=== PATIENT | female | born 1930 | race Caucasian/White ===

== ENCOUNTER 2017-03-03 17:56 | Emergency (ER) | payer MEDICARE, OTHER ==
[2017-03-03 19:20] LABS: Hematocrit 38.8 % (36.0-47.0); Mean Platelet Volume 6.8 fL (7.4-10.4); Red Blood Cell (RBC) Count 4.02 mill/uL (4.20-5.40); White Blood Cell (WBC) Count 11.6 thou/uL (4.8-10.8)
[2017-03-03 19:27] LABS: PTT 33.6 SEC (22.9-36.1); Prothrombin Time 14.1 SEC (12.0-14.7)
[2017-03-03 19:39] LABS: Band 5 % (5-11); Neutrophil 49 % (42-75); Reactive Lymphocytes 1 % (0-10)
[2017-03-03 19:42] LABS: ALT (SGPT) 12 U/L (8-55); AST (SGOT) 15 U/L (5-34); Alkaline Phosphatase 74 U/L (40-150); Anion Gap 13 mmol/L (10-20); BUN (Urea Nitrogen) 22 mg/dL (9.8-20.1); Bilirubin, Total 0.4 mg/dL (0.2-1.2); Calc. Creatinine Clearance 0 mL/min (70-130); Calcium 9.2 mg/dL (7.8-10.44); Carbon Dioxide 24 mmol/L (23-31); Chloride 105 mmol/L (98-107); Estimated GFR-MDRD 28; Globulin 3.3 g/dL (2.4-3.5)
--- NOTE | 2017-03-03 20:13 | RAD ---
RIGHT HIP ONE VIEW: 03/03/17 HISTORY: Tripped and fell. A cross-stable lateral view shows a hip prosthesis in place. No evidence of fracture. IMPRESSION: No evidence of fracture on this single projection. POS: [facility]
--- NOTE | 2017-03-03 20:17 | RAD ---
AP PELVIS: 03/03/17 HISTORY: Fall with pelvic pain. The pelvic ring appears intact. The bones are demineralized. The right hip prosthesis is partially v isualized. 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 IMPRESSION: No evidence of fracture of the pelvic ring. POS: [facility]
[2017-03-03] MEDS ORDERED: HYDROcodone/Acetaminophen 5/325 mg Tablet ONE (20:26)
--- NOTE | 2017-03-03 21:37 | CT ---
CT OF BRAIN PERFORMED WITHOUT CONTRAST ENHANCEMENT: 03/03/17 HISTORY: Patient is status post fall with head injury. COMPARISON: 10/14/15 study. There is generalized ventricular and sulcal prominence. There is decreased attenuation of the perive ntricular white matter consistent with chronic white matter change. There is no signs of intracerebr al hemorrhage or extra-axial fluid collections. The mastoid air cells and visualized sinuses are demetrio ar. IMPRESSION: No acute intracranial abnormalities. POS: [facility]
--- NOTE | 2017-03-03 21:45 | CT ---
CT OF CERVICAL SPINE PERFORMED WITHOUT CONTRAST ENHANCEMENT: 03/03/17 HISTORY: Fall with neck injury. The bones appear demineralized. Vertebral bodies are normal in height. There is marked disc narrowin g at C4-5, C5-6 and C6-7. There are degenerative facet changes present. There appears to be some ank ylosis across some of the upper facet joints at C2-3 and C3-4. There is no CT evidence of fracture. Incidental note is made of thyroid nodules. Lung apices are clear. IMPRESSION: 1. No CT evidence of fracture of the cervical spine. 2. Thyroid nodules. POS: [facility]
--- NOTE | 2017-03-03 23:17 | CT ---
CT OF PELVIS PERFORMED WITHOUT CONTRAST ENHANCEMENT: 03/03/17 HISTORY: Back and right hip pain. There is a very subtle area of buckling of the anterior cortex of the right side of the sacrum poten tially a very subtle buckle fracture. This finding is somewhat equivocal. There is evidence of a rig ht inferior pubic ramus fracture which is nondisplaced. There is some subtle buckling to the superio r pubic ramus near the symphysis probably also representing fracture. Hip prosthesis appears in good position. IMPRESSION: Right superior and inferior pubic rami fractures and probably a very subtle right sided sacral fract ure. POS: [facility]
== END 2017-03-04 02:16 | disposition home or self-care (01) ==
LOC: ERS 17:56
DX: S32.591A Other specified fracture of right pubis, initial encounter for closed fracture (principal); S32.10XA Unspecified fracture of sacrum, initial encounter for closed fracture; I35.8 Other nonrheumatic aortic valve disorders; E78.1 Pure hyperglyceridemia; F03.90 Unspecified dementia, unspecified severity, without behavioral disturbance, psychotic disturbance, mood disturbance, and anxiety; E11.9 Type 2 diabetes mellitus without complications; W22.8XXA Striking against or struck by other objects, initial encounter; Y93.41 Activity, dancing; Y92.099 Unspecified place in other non-institutional residence as the place of occurrence of the external cause
CPT/HCPCS: 36415; 70450; 72125; 72170; 80053; 85025; 85060; 85610; 85730

== ENCOUNTER 2017-08-31 08:58 | Emergency (ER) | payer MEDICARE, OTHER ==
[2017-08-31 09:47] LABS: #Basophils 0.1 thou/uL (0.0-0.2); #Eosinphils 0.2 thou/uL (0.0-0.7); #Lymphocytes 1.3 thou/uL (1.20-3.40); #Monocytes 0.6 thou/uL (0.11-0.59); #Neutrophils 5.2 thou/uL (1.40-6.50); %Basophils 0.8 % (0.0-1.0); %Eosinophils 2.5 % (0.0-10.0); %Lymphocytes 17.8 % (21.0-51.0); %Monocytes 7.7 % (0.0-10.0); %Neutrophils 71.2 % (42.0-75.0); Hemoglobin 12.2 g/dL (12.0-16.0); Mean Corpuscular HGB CONC 33.2 g/dL (32.0-36.0); Mean Corpuscular Hemoglobin 31.4 pg (27.0-31.0); Mean Corpuscular Volume 94.4 fl (81.0-99.0); Mean Platelet Volume 6.6 fL (7.4-10.4); Platelet Count 241 thou/uL (130-400); RBC Distribution Width 12.2 % (11.5-14.5); Red Blood Cell (RBC) Count 3.87 mill/uL (4.20-5.40); White Blood Cell (WBC) Count 7.3 thou/uL (4.8-10.8)
[2017-08-31 10:08] LABS: ALT (SGPT) 9 U/L (8-55); AST (SGOT) 14 U/L (5-34); Alkaline Phosphatase 64 U/L (40-150); Anion Gap 14 mmol/L (10-20); BUN (Urea Nitrogen) 29 mg/dL (9.8-20.1); Bilirubin, Total 0.7 mg/dL (0.2-1.2); Calc. Creatinine Clearance 0 mL/min (70-130); Calcium 9.4 mg/dL (7.8-10.44); Carbon Dioxide 24 mmol/L (23-31); Chloride 107 mmol/L (98-107); Estimated GFR-MDRD 26; Globulin 3.2 g/dL (2.4-3.5); Glucose 82 mg/dL (83-110); Lipase 21 U/L (8-78); Potassium 4.3 mmol/L (3.5-5.1); Protein, Total 7.2 g/dL (6.0-8.3); Sodium 141 mmol/L (136-145)
[2017-08-31 10:19] LABS: Troponin I Less than 0.010 ng/mL (< 0.028)
--- NOTE | 2017-08-31 10:46 | RAD ---
CHEST 1 VIEW: HISTORY: Chest pain. COMPARISON: 10/10/16. FINDINGS: Cardiac silhouette is magnified by projection. Pulmonary vasculature is upper limits of normal. Med iastinum is midline. A density at the left posterior lung base behind the cardiac silhouette is judah lar in appearance to the previous study. Metallic densities over the right lower neck are again demo nstrated. IMPRESSION: 1. Atherosclerosis. 2. Chronic-type findings are stable. POS: [facility]
[2017-08-31 13:43] LABS: Troponin I Less than 0.010 ng/mL (< 0.028)
== END 2017-08-31 14:18 | disposition home or self-care (01) ==
LOC: ERS 08:58
DX: R07.89 Other chest pain (principal); R10.12 Left upper quadrant pain; E11.9 Type 2 diabetes mellitus without complications; E78.2 Mixed hyperlipidemia; F03.90 Unspecified dementia, unspecified severity, without behavioral disturbance, psychotic disturbance, mood disturbance, and anxiety; I10 Essential (primary) hypertension; Z79.899 Other long term (current) drug therapy; Z79.4 Long term (current) use of insulin
CPT/HCPCS: 36415; 71045; 80053; 83690; 84484; 85025; 93005